=== PATIENT | male | born 1975 | race Caucasian/White ===

== ENCOUNTER 2019-02-26 07:55 | Observation (INO) | payer OTHER ==
[~2019-02-26] VITALS: Ht 182.9 cm; Wt 141.3 kg
[~2019-02-26 07:55] MED LIST: KETO10 PO; OXYACE5T PO; PROM25 PO; TAMS.4ER PO
[2019-02-26 08:37] LABS: BASOPHILS ABSOLUTE AUTO 0.04 K/mm3 (0.00-0.23); BASOPHILS PERCENT AUTO 1 % (0-2); EOSINOPHILS ABSOLUTE AUTO 0.12 K/mm3 (0.00-0.68); EOSINOPHILS PERCENT AUTO 2 % (0-6); Hematocrit 48.7 % (37.0-53.0); Hemoglobin 15.7 g/dL (13.5-17.5); IMMATURE GRAN ABSOLUTE AUTO 0.02 K/mm3 (0.00-0.10); IMMATURE GRAN PERCENT AUTO 0 % (0-1); LYMPHOCYTES ABSOLUTE AUTO 2.46 K/mm3 (0.84-5.20); LYMPHOCYTES PERCENT AUTO 39 % (21-46); MONOCYTES ABSOLUTE AUTO 0.62 K/mm3 (0.16-1.47); MONOCYTES PERCENT AUTO 10 % (4-13); Mean Corpuscular HGB 30.3 pg (26.0-34.0); Mean Corpuscular HGB Conc 32.2 g/dL (31.5-36.5); Mean Corpuscular Volume 94 fL (80-100); Mean Platelet Volume 9.6 fL (9.1-12.4); NEUTROPHILS ABSOLUTE AUTO 3.02 K/mm3 (1.96-9.15); NEUTROPHILS PERCENT AUTO 48 % (41-73); Platelet Count 260 K/mm3 (150-400); RDW Coefficient Variation 12.7 % (11.7-14.2); RDW Standard Deviation 43.8 fL (35.1-46.3); Red Blood Cell Count 5.18 M/mm3 (4.30-5.90); White Blood Cell Count 6.28 K/mm3 (4.00-11.30)
[2019-02-26 08:58] LABS: Alanine Aminotransfer (ALT/SGP 47 U/L (12-78); Albumin, Blood 3.9 g/dL (3.4-5.0); Albumin/Globulin Ratio 1.1 (0.8-1.8); Alk Phos 73 U/L (50-136); Anion Gap 7 mmol/L (6-16); Aspartate Aminotrans (AST/SGOT 21 U/L (12-37); Bilirubin, Total 0.7 mg/dL (0.1-1.0); Blood Urea Nitrogen 24 mg/dL (8-24); Bun/Creatinine Ratio 23.5 (12.0-20.0); CO2, Blood 28 mmol/L (21-32); Calcium, Blood 8.9 mg/dL (8.5-10.1); Chloride, Blood 106 mmol/L (98-108); Creatinine, Blood 1.02 mg/dL (0.60-1.20); Globulin, Blood 3.7 g/dL (2.2-4.0); Glomerular Filtration Rate >60 (60-); Glucose, Blood 111 mg/dL (70-99); Potassium, Blood 4.5 mmol/L (3.5-5.5); Sodium, Blood 141 mmol/L (136-145); Total Protein, Blood 7.6 g/dL (6.4-8.2); Troponin I <0.015 ng/mL (0.000-0.040)
[2019-02-26 13:18] LABS: International Normalized Ratio 0.99; Prothrombin Time Results 10.5 Sec (9.7-11.5)
--- NOTE | 2019-02-26 19:00 | NUR ---
SHIFT SUMMARY- PT NEW ADMIT THIS AFTERNOON. PT AXO X4. PT DENIES PAIN. DENIES CP. DENIES SOB AT REST. REPORTS DYSPNEA UPON EXERTION. CONT. BIOX. RESP E/U ON RA. DENIES N/V. INDEPENDENT IN THE ROOM. FAMILY AT BEDSIDE. NO OTHER SIGNIFICANT CHANGES THIS SHIFT.
[2019-02-26 21:08] LABS: Troponin I <0.015 ng/mL (0.000-0.040)
[2019-02-27 04:47] LABS: BASOPHILS ABSOLUTE AUTO 0.05 K/mm3 (0.00-0.23); BASOPHILS PERCENT AUTO 1 % (0-2); EOSINOPHILS ABSOLUTE AUTO 0.17 K/mm3 (0.00-0.68); EOSINOPHILS PERCENT AUTO 2 % (0-6); Hematocrit 47.9 % (37.0-53.0); Hemoglobin 15.2 g/dL (13.5-17.5); IMMATURE GRAN ABSOLUTE AUTO 0.04 K/mm3 (0.00-0.10); IMMATURE GRAN PERCENT AUTO 1 % (0-1); LYMPHOCYTES ABSOLUTE AUTO 3.39 K/mm3 (0.84-5.20); LYMPHOCYTES PERCENT AUTO 45 % (21-46); MONOCYTES ABSOLUTE AUTO 0.76 K/mm3 (0.16-1.47); MONOCYTES PERCENT AUTO 10 % (4-13); Mean Corpuscular HGB 30.3 pg (26.0-34.0); Mean Corpuscular HGB Conc 31.7 g/dL (31.5-36.5); Mean Corpuscular Volume 96 fL (80-100); Mean Platelet Volume 9.7 fL (9.1-12.4); NEUTROPHILS PERCENT AUTO 41 % (41-73); Platelet Count 261 K/mm3 (150-400); RDW Coefficient Variation 12.8 % (11.7-14.2); RDW Standard Deviation 45.1 fL (35.1-46.3); Red Blood Cell Count 5.01 M/mm3 (4.30-5.90); White Blood Cell Count 7.51 K/mm3 (4.00-11.30)
[2019-02-27 05:06] LABS: Alanine Aminotransfer (ALT/SGP 43 U/L (12-78); Albumin, Blood 3.5 g/dL (3.4-5.0); Alk Phos 70 U/L (50-136); Anion Gap 6 mmol/L (6-16); Aspartate Aminotrans (AST/SGOT 20 U/L (12-37); Bilirubin, Total 0.3 mg/dL (0.1-1.0); Blood Urea Nitrogen 24 mg/dL (8-24); Bun/Creatinine Ratio 23.3 (12.0-20.0); CHOL/HDL RATIO 5.4; CO2, Blood 29 mmol/L (21-32); Calcium, Blood 8.6 mg/dL (8.5-10.1); Chloride, Blood 104 mmol/L (98-108); Cholesterol 226 mg/dL (50-200); Creatinine, Blood 1.03 mg/dL (0.60-1.20); Globulin, Blood 3.4 g/dL (2.2-4.0); Glomerular Filtration Rate >60 (60-); Glucose, Blood 127 mg/dL (70-99); HDL Cholesterol 42 mg/dL (>39); LDL/HDL RATIO 2.8; Low Density Lipoprotein Chol 116 mg/dL (0-110); Magnesium, Blood 2.5 mg/dL (1.6-2.4); Sodium, Blood 139 mmol/L (136-145); Total Protein, Blood 6.9 g/dL (6.4-8.2); Triglycerides 341 mg/dL (30-160); Troponin I <0.015 ng/mL (0.000-0.040); Very Low Density Lipoprot Chol 68 mg/dL (6-32)
--- NOTE | 2019-02-27 06:23 | NUR ---
SHIFT SUMMARY PT A/O INDEPENDENT.HEPARIN DRIP. DENIED ANY CP. NPO AT MIDNIGHT FOR POSSIBLE STRESS TEST. TELE SHOWED SINUS STELLA @ 48-54 PER TREE SURGEON. HE WAS ABLE TO SLEEP T/O NIGHT. CALL LIGHT IN REACH.
--- NOTE | 2019-02-27 18:15 | NUR ---
SHIFT SUMMARY NO ACUTE CHANGES IN PATIENTS CONDITION THIS SHIFT. FAMILY HAS BEEN AT BEDSIDE THE MAJORITY OF THE SHIFT. PATIENT WAS ADMITTED 02/26/19 FOR CHEST PAIN AND WAS FOUND TO HAVE BRADYCARDIA. PT'S HR BASELINE HAS INCREASED T/O THE SHIFT AND WAS 65 AND SINUS RHYTHM @ 1800. PT DENIES PN AT THIS TIME. WILL CONTINUE TO MONITOR.
--- NOTE | 2019-02-28 07:03 | NUR ---
SHIFT SUMMARY PT A/O INDEPENDENT. NO C/O CP. HEPARIN DRIP. NPO SINCE MIDNIGHT. TELE SHOWED SINUS @ 66 PER TEXTILE MACHINE OPERATOR AT 2057. HE WAS ABLE TO SLEEP T/O NIGHT. CALL LIGHT IN REACH.
[2019-02-28] MEDS ORDERED: PANT40 PO ×2 (12:19)
--- NOTE | 2019-02-28 13:10 | NUR ---
DISCHARGE NOTE- PT WAS GIVEN VERBAL AND WRITTEN DISCHARGE INSTRUCTIONS AND ACKNOWLEDGED UNDERSTANDING OF THEM. PT STATED HE ALREADY HAS AN APPOINTMENT [facility] TO ESTABLISH WITH A PCP. PT SPOUSE PRESENT FOR DISCHARGE TEACHING. CONFIRMED CONTACT INFO FOR THE PT: PT PHONE NUMBER IS AI PT SPOUSE NUMBER IS NAME [id number]
[2019-03-01] MEDS ORDERED: PRED10 PO (13:05)
[2019-03-01] MEDS ORDERED: METCAR500 PO (13:05)
[2019-03-01] MEDS ORDERED: Norco 5-325 Ta1 EACH PO (13:05)
== END 2019-02-28 12:50 | disposition home or self-care (01) ==
LOC: ER 07:55 → MEDS 07:56 → ER 12:54 → MEDS 15:40
PROVIDERS: Emergency Medicine; Pharmacist; ADMIT Internal Medicine
DX: R07.9 Chest pain, unspecified (principal); M25.512 Pain in left shoulder; M54.2 Cervicalgia; R20.0 Anesthesia of skin; R20.2 Paresthesia of skin; K21.9 Gastro-esophageal reflux disease without esophagitis; I10 Essential (primary) hypertension; K85.90 Acute pancreatitis without necrosis or infection, unspecified; E66.01 Morbid (severe) obesity due to excess calories; R74.8 Abnormal levels of other serum enzymes; E78.5 Hyperlipidemia, unspecified
CPT/HCPCS: 36415; 71046; 76705; 78452; 80053; 80061; 83690; 83735; 84443; 84484; 85025; 85610; 85730; 93005; 93010; 93017; 93306; 94762; 96374; 96376; 99285-25; A9500; G0378; J1644

== ENCOUNTER 2019-03-01 09:21 | Emergency (ER) | payer OTHER ==
[~2019-03-01] VITALS: Ht 182.9 cm; Wt 140.6 kg
[~2019-03-01 09:21] MED LIST changes: +PANT40 PO
[2019-03-01 10:03] LABS: BASOPHILS ABSOLUTE AUTO 0.03 K/mm3 (0.00-0.23); BASOPHILS PERCENT AUTO 1 % (0-2); EOSINOPHILS ABSOLUTE AUTO 0.08 K/mm3 (0.00-0.68); EOSINOPHILS PERCENT AUTO 1 % (0-6); Hematocrit 47.2 % (37.0-53.0); IMMATURE GRAN ABSOLUTE AUTO 0.02 K/mm3 (0.00-0.10); IMMATURE GRAN PERCENT AUTO 0 % (0-1); LYMPHOCYTES ABSOLUTE AUTO 1.94 K/mm3 (0.84-5.20); LYMPHOCYTES PERCENT AUTO 35 % (21-46); MONOCYTES ABSOLUTE AUTO 0.52 K/mm3 (0.16-1.47); MONOCYTES PERCENT AUTO 9 % (4-13); Mean Corpuscular HGB 30.1 pg (26.0-34.0); Mean Corpuscular HGB Conc 31.8 g/dL (31.5-36.5); Mean Corpuscular Volume 95 fL (80-100); Mean Platelet Volume 9.5 fL (9.1-12.4); NEUTROPHILS ABSOLUTE AUTO 2.99 K/mm3 (1.96-9.15); NEUTROPHILS PERCENT AUTO 54 % (41-73); Platelet Count 247 K/mm3 (150-400); RDW Coefficient Variation 12.6 % (11.7-14.2); RDW Standard Deviation 44.2 fL (35.1-46.3); Red Blood Cell Count 4.98 M/mm3 (4.30-5.90); White Blood Cell Count 5.58 K/mm3 (4.00-11.30)
[2019-03-01 10:30] LABS: Alanine Aminotransfer (ALT/SGP 47 U/L (12-78); Albumin, Blood 3.8 g/dL (3.4-5.0); Albumin/Globulin Ratio 1.1 (0.8-1.8); Alk Phos 68 U/L (50-136); Anion Gap 3 mmol/L (6-16); Aspartate Aminotrans (AST/SGOT 27 U/L (12-37); Bilirubin, Total 0.4 mg/dL (0.1-1.0); Blood Urea Nitrogen 21 mg/dL (8-24); Bun/Creatinine Ratio 22.6 (12.0-20.0); CO2, Blood 30 mmol/L (21-32); Calcium, Blood 8.8 mg/dL (8.5-10.1); Chloride, Blood 104 mmol/L (98-108); Creatinine, Blood 0.93 mg/dL (0.60-1.20); Globulin, Blood 3.5 g/dL (2.2-4.0); Glomerular Filtration Rate >60 (60-); Glucose, Blood 108 mg/dL (70-99); Potassium, Blood 4.4 mmol/L (3.5-5.5); Sodium, Blood 137 mmol/L (136-145); Total Protein, Blood 7.3 g/dL (6.4-8.2); Troponin I <0.015 ng/mL (0.000-0.040)
[2019-03-01] MEDS ORDERED: PRED10 PO (13:05)
[2019-03-01] MEDS ORDERED: METCAR500 PO (13:05)
[2019-03-01] MEDS ORDERED: Norco 5-325 Ta1 EACH PO (13:05)
== END 2019-03-01 13:10 | disposition home or self-care (01) ==
LOC: ER 09:21
PROVIDERS: Physician Assistant
DX: M54.12 Radiculopathy, cervical region (principal); R07.9 Chest pain, unspecified; M25.512 Pain in left shoulder; Z79.899 Other long term (current) drug therapy; F17.220 Nicotine dependence, chewing tobacco, uncomplicated
CPT/HCPCS: 36415; 80053; 83880; 84484; 85025; 85379; 93005; 93010; 96374; 96375; 99285-25; J2270; J2405